=== PATIENT | female | born 1945 | race Caucasian/White ===

== ENCOUNTER 2018-02-21 15:23 | Emergency (ER) | payer MEDICARE ==
[2018-02-21 15:34] VITALS: BP 144/69
--- NOTE | 2018-02-21 15:48 | UC ---
Head Injury HPI - HPI Summary HPI Summary: 72 yo female presents accompanied by her with a head injury. Around 1430 today pt slipped in her yard on something wet and fell backwards. She tells me that the back of her head hit the corner of a brick. She does not remember much after that. Her said that he found her <5minutes later and she was conscious at that time and in pain. He noticed blood and a lac to the back of her head and pt was complaining of a headache and dizziness - he drove her to . Currently pt is complaining of a headache, dizziness, increased anxiety, and tingling in b/l UEs and LEs. She is able to describe falling to me, but says she cannot remember what happened after that. Currently she thinks it is around 1400 (actually 1600) and does not remember "where the last hours have gone". She is very tearful. She takes a daily ASA, but no other blood thinners. Denies vision changes, neck pain, trouble speaking, n/v. - History Of Current Complaint Chief Complaint: UCHeadInjury Stated Complaint: HEAD INJURY Time Seen by Provider: 02/21/18 15:48 Hx Obtained From: Patient, Family/Telephone Answering Service Operator Onset/Duration: Sudden Onset Severity Currently: Severe Severity Initially: Moderate Pain Intensity: 5 Pain Scale Used: 0-10 Numeric - Allergies/Home Medications Allergies/Adverse Reactions: Allergies Allergy/AdvReac Type Severity Reaction Status Date / Time codeine Allergy Nausea Verified 02/21/18 17:10 Home Medications: Home Medications Abaloparatide [Tymlos] 1 dose SUBCUT DAILY 02/21/18 [History] PMH/Surg Hx/FS Hx/Imm Hx - Additional Past Medical History Additional PMH: None - Surgical History Surgical History: Yes Surgery Procedure, Year, and Place: tonsillectomy. L ankle with pins/wire. osteoperosis - Family History Known Family History: Positive: None - Social History Occupation: Retired Lives: With Family Alcohol Use: None Alcohol Amount: 1 GLASS DAILY Substance Use Type: None Smoking Status (MU): Never Smoked Tobacco Review of Systems Constitutional: Negative Skin: Other - Lac occipital scalp Eyes: Negative ENT: Negative Respiratory: Negative Cardiovascular: Negative Gastrointestinal: Negative Neurovascular: Negative Musculoskeletal: Negative Neurological: Headache, Paresthesia - UEs and LEs, Other - Dizziness Psychological: Negative All Other Systems Reviewed And Are Negative: Yes Physical Exam - Summary Physical Exam Summary: GENERAL: Very anxious and tearful. SKIN: 5mm linear laceration to right occipital scalp. HEENT: Head: No garcias's sign or raccoon eyes. Eyes: PERRLA. EOM intact. No nystagmus. Ears: Hearing grossly normal. TMs intact, no bulging, erythema, or edema. No bleeding. NECK: Supple. FROM. Mild TTP C2-C3 CHEST: CTAB. No r/r/w. No accessory muscle use. CV: RRR. Without m/r/g. Pulses intact. Brisk cap refill. MSK: FROM in B/L UEs and LEs with symmetric strength. NEURO: Oriented to person and place, but fails time. Ability to follow 2-step directions and attention intact. CN: II: Peripheral sauceda intact. Vision normal. III, IV, : EOMI. No nystagmus. PERRLA. V: Sensations intact and symmetric. Opens mouth and clenches teeth. VII: No facial asymmetry. Forehead wrinkles. Grins, shuts eyes, frowns, puffs cheeks. VIII: Hearing intact to finger rub. IX, X: Swallows and coughs. Uvula midline. XI: Shrugs shoulders. Turns head against resistance. XII: No tongue deviation [id number]-uw-[id number] are intact. Normal speech. No facial drooping. Sensations intact C4-T1 and L3-S1. PSYCH: Anxious. GCS 15 Triage Information Reviewed: Yes Vital Signs: Initial Vital Signs Temp 98.2 F 02/21/18 15:27 Pulse 89 02/21/18 15:27 Resp 22 02/21/18 15:27 BP 144/69 02/21/18 15:27 Pulse Ox 100 02/21/18 15:27 Vital Signs Reviewed: Yes Head Injury Course/Dx - Course Course Of Treatment: During the PE her asks her about parts of the exam and pt says that she cannot remember me "looking in her eyes" or "testing her arm strength". Given her head trauma location and LOC with difficulty remembering events there is a concern for a basilar skull fracture. She does take a daily ASA increasing her risk of intracranial pathology. For these reasons I have recommended a higher level of care and that the pt be transferred to the ED for further evaluation. Pt and were agreeable to this and agreed to go by ambulance. Pt was placed in a cervical collar and left via EMS in stable condition. - Differential Dx/Diagnosis Provider Diagnoses: Head trauma. LOC Discharge - Sign-Out/Discharge Documenting (check all that apply): Patient Departure All imaging exams completed and their final reports reviewed: No Studies - Discharge Plan Condition: Good Disposition: TRANS HIGHER LVL OF CARE FAC Referrals: Koko Ayers MD [Primary Care Provider] - - Billing Disposition and Condition Condition: GOOD Disposition: Trans Higher Lvl of Care Fac
== END 2018-02-21 16:28 | disposition short-term general hospital (02) ==
LOC: UCEAST 15:23
DX: S06.9X9A Unspecified intracranial injury with loss of consciousness of unspecified duration, initial encounter (principal); S01.01XA Laceration without foreign body of scalp, initial encounter; W01.198A Fall on same level from slipping, tripping and stumbling with subsequent striking against other object, initial encounter; Y92.096 Garden or yard of other non-institutional residence as the place of occurrence of the external cause; Z79.82 Long term (current) use of aspirin; Z88.5 Allergy status to narcotic agent
CPT/HCPCS: 99214; G0463

== ENCOUNTER 2018-02-21 16:49 | Emergency (ER) | payer MEDICARE ==
--- NOTE | 2018-02-21 17:45 | ED ---
Head Injury - HPI Summary HPI Summary: This pt is a 72 y/o female presenting to [facility] via EMS from [facility] for a head injury today s/p mechanical fall. Pt reports she was outside when she stepped on "something wet" and slipped on bricks striking the back of her head on the right side. Pt notes she had LOC but is unsure how long it lasted. She c/o headache, neck pain, and abrasions. Pt went to [facility] and was placed on a C- collar. Denies back pain, abd pain, nausea, vomiting, chest pain, dizziness. - History Of Current Complaint Chief Complaint: EDHeadInjury Stated Complaint: HEAD INJURY Time Seen by Provider: 02/21/18 17:24 Hx Obtained From: Patient Mechanism Of Injury: Direct Blow, Fall From A Standing Position Onset/Duration: Started Hours Ago, Traumatic, Still Present Onset of Pain: Immediate Severity Initially: Moderate Pain Intensity: 6 Pain Scale Used: 0-10 Numeric Location of Head Injury: Occipital - right sided Aggravating Factor(s): Other: - nothing Alleviating Factor(s): Other: - nothing Associated Signs And Symptoms: LOC Duration Unknown, Headache - Allergies/Home Medications Allergies/Adverse Reactions: Allergies Allergy/AdvReac Type Severity Reaction Status Date / Time codeine Allergy Nausea Verified 02/21/18 17:10 PMH/Surg Hx/FS Hx/Imm Hx Endocrine/Hematology History: Denies: Hx Diabetes, Hx Thyroid Disease Cardiovascular History: Denies: Hx Hypercholesterolemia, Hx Hypertension, Hx Peripheral Vascular Disease Respiratory History: Denies: Hx Asthma, Hx Chronic Obstructive Pulmonary Disease (COPD) GI History: Denies: Hx Ulcer Musculoskeletal History: Reports: Hx Osteoporosis Denies: Hx Arthritis, Hx Rheumatoid Arthritis Sensory History: Denies: Hx Cataracts, Hx Contacts or Glasses, Hx Glaucoma, Hx Hearing Aid Opthamlomology History: Denies: Hx Cataracts, Hx Contacts or Glasses, Hx Glaucoma Neurological History: Denies: Hx Headaches, Hx Seizures, Hx Transient Ischemic Attacks (TIA) Psychiatric History: Denies: Hx Anxiety, Hx Depression - Cancer History Hx Chemotherapy: No Hx Radiation Therapy: No - Surgical History Surgery Procedure, Year, and Place: tonsillectomy. L ankle with pins/wire. osteoperosis Hx Anesthesia Reactions: No Infectious Disease History: No Infectious Disease History: Reports: Hx Shingles - 1996, History Other Infectious Disease - Measles Denies: Hx Clostridium Difficile, Hx Hepatitis, Hx Human Immunodeficiency Virus (HIV), Hx of Known/Suspected MRSA, Hx Tuberculosis, Hx Known/Suspected VRE , Hx Known/Suspected VRSA, Traveled Outside the [place] in Last 30 Days - Family History Family History: mother with macular degeneration - Social History Alcohol Use: None Alcohol Amount: 1 GLASS DAILY Substance Use Type: Reports: None Smoking Status (MU): Never Smoked Tobacco Review of Systems Negative: Fever, Chills Negative: Chest Pain Negative: Abdominal Pain, Vomiting, Nausea Musculoskeletal: Other - neck pain Negative: Other - back pain Skin: Other - abrasions Positive: Headache All Other Systems Reviewed And Are Negative: Yes Physical Exam - Summary Physical Exam Summary: VITAL SIGNS: Reviewed. GENERAL: Patient is a well-developed and nourished female who is lying comfortable in the stretcher. Patient is not in any acute respiratory distress. HEAD AND FACE: Superficial abrasion approximately 3 mm, not actively bleeding, on the posterior aspect of head. No sinus tenderness. EYES: PERRLA, EOMI x 2, No injected conjunctiva, no nystagmus. EARS: Hearing grossly intact. Ear canals and tympanic membranes are within normal limits. MOUTH: Oropharynx within normal limits. NECK: Supple, trachea is midline, no adenopathy, no JVD, no carotid bruit. Pt has a C-collar placed. CHEST: Symmetric, no tenderness at palpation LUNGS: Clear to auscultation bilaterally. No wheezing or crackles. CVS: Regular rate and rhythm, S1 and S2 present, no murmurs or gallops appreciated. ABDOMEN: Soft, non-tender. No signs of distention. No rebound, no guarding, and no masses palpated. Bowel sounds are normal. EXTREMITIES: FROM in all major joints, no edema, no cyanosis or clubbing. NEURO: Alert and oriented x 3. No acute neurological deficits. Speech is normal and follows commands. SKIN: Dry and warm GCS: 15 Triage Information Reviewed: Yes Vital Signs On Initial Exam: Initial Vitals Temp Pulse Resp BP Pulse Ox 98.6 F 69 18 159/111 100 02/21/18 16:58 02/21/18 16:58 02/21/18 16:58 02/21/18 16:58 02/21/18 16:58 Vital Signs Reviewed: Yes Diagnostics - Vital Signs Vital Signs Temp Pulse Resp BP Pulse Ox 02/21/18 16:58 98.6 F 69 18 159/111 100 - Laboratory Result Diagrams: 02/21/18 17:20 02/21/18 17:20 Lab Statement: Any lab studies that have been ordered have been reviewed, and results considered in the medical decision making process. - CT Cervical spine CT CT Interpretation: Positive (See Comments) - IMPRESSION: 1. There is soft tissue emphysema in the base of the right occipital scalp and right posterior neck likely related to trauma but no obvious radiopaque foreign body. 2. No acute cervical spine fracture. Dr. Harris has reviewed this report. CT Interpretation Completed By: Radiologist Brain CT CT Interpretation: No Acute Changes - IMPRESSION: 1. There is age-related diffuse cerebral and cerebellar volume loss and chronic microvascular ischemic disease. 2. No acute intracranial patholgy. Dr. Harris has reviewed this report. CT Interpretation Completed By: Radiologist Head Injury Course/Dx Assessment/Plan: This pt is a 72 y/o female presenting to [facility] via EMS from [facility] for a head injury today s/p mechanical fall. Pt reports she was outside when she stepped on "something wet" and slipped on bricks striking the back of her head on the right side. Pt notes she had LOC but is unsure how long it lasted. She c/o headache, neck pain, and abrasions. Pt went to [facility] and was placed on a C-collar. Denies back pain, abd pain, nausea, vomiting, chest pain, dizziness. Patient given Tetanus booster. Blood test results without any significant abnormality. C-spine CT and Head CT impression.: there is a soft tissue emphysema in the base of the right occipital scalp and right posterior neck likely related to the trauma but no obvious radiopaque foreign body. No acute cervical fracture. In the ER course the patient remained hemodynamically stable. The patient is ambulating with a good steady walk. I discussed all the findings and test results with the patient. Patient was instructed to return to the emergency room immediately if any of the symptoms return or worsens. Plan of care was discussed with the patient and she understands and agrees. All questions were answered at patient satisfaction. There were no further complaints or concerns. Lung exam before discharge: CTA B/L. Good air exchange. No wheezing or crackles heard. CVS: S1 and S2 present. No murmurs appreciated. Patient is alert and oriented x 3. Patient is hemodynamically stable. Patient will be discharged home with follow up PCP in the next 2-3 days. - Diagnoses Differential Diagnosis/HQI/PQRI: Cervical Sprain, Concussion With LOC, Contusion , Intracranial Bleed, Skull Fracture Provider Diagnoses: Head contusion, Neck contusion, Abrasion Discharge - Sign-Out/Discharge Documenting (check all that apply): Patient Departure - Discharge home - Discharge Plan Condition: Stable Disposition: HOME Patient Education Materials: Contusion in Adults (ED), Abrasion (ED) Referrals: Koko Ayers MD [Primary Care Provider] - Additional Instructions: FOLLOW UP WITH YOUR PRIMARY CARE PROVIDER WITHIN ONE WEEK FOR HIGH BLOOD PRESSURE NOTED TODAY. RETURN TO THE ED FOR ANY NEW OR WORSENING SYMPTOMS. - Billing Disposition and Condition Condition: STABLE Disposition: Home - Attestation Statements Document Initiated by Jbibe: Yes Documenting Scribe: Suzanna Rodrigues Provider For Whom Scribe is Documenting (Include Credential): Ramses Harris MD Scribe Attestation: Suzanna Boyer scribed for Ramses Harris MD on 02/22/18 at 0747. Scribe Documentation Reviewed: Yes Provider Attestation: The documentation as recorded by the Suzanna hull accurately reflects the service I personally performed and the decisions made by , Ramses Harris MD
[2018-02-21 17:56] LABS: ABS Basophils 0.1 10^3/ul (0-0.2); ABS Eosinophils 0.2 10^3/ul (0-0.6); ABS Lymphocytes 1.5 10^3/ul (1.0-4.8); ABS Monocytes 0.6 10^3/ul (0-0.8); ABS Neutrophils 5.9 10^3/ul (1.5-7.7); ABS Nucleated RBC 0 10^3/ul; Eosinophil % 2.1 % (0-6); Hematocrit 45 % (35-47); Hemoglobin 15.6 g/dl (12.0-16.0); Lymphocyte % 18.6 % (25-47); Mean Corpuscular HGB Conc 35 g/dl (31-36); Mean Corpuscular Hemoglobin 31 pg (27-31); Mean Corpuscular Volume 91 fL (80-97); Mean Platelet Volume 10.2 um3 (7.4-10.4); Nucleated Red Blood Cells % 0; Platelet Count 207 10^3/ul (150-450); Red Blood Count 4.97 10^6/ul (4.00-5.40); Red Cell Distribution Width 14 % (10.5-15); White Blood Count 8.3 10^3/ul (3.5-10.8)
[2018-02-21 18:05] LABS: EGFR Non-African American 82.7 (>60)
--- NOTE | 2018-02-21 18:24 | RAD ---
EXAM: CT Head Without Intravenous Contrast EXAM DATE/TIME: 02/21/2018 5:54 PM CLINICAL HISTORY: 72 years old, female; Pain; Headache; Patient HX: Hit back of head base of skull; Additional info: Head injury TECHNIQUE: Axial computed tomography images of the head/brain without intravenous contrast. All CT scans at this facility use at least one of these dose optimization techniques: automated exposure control; mA and/or kV adjustment per patient size (includes targeted exams where dose is matched to clinical indication); or iterative reconstruction. COMPARISON: No relevant prior studies available. FINDINGS: Brain: There is age-related diffuse cerebral and cerebellar volume loss and chronic microvascular ischemic disease. Ventricles: Normal. No ventriculomegaly. Bones/joints: Normal. No acute fracture. Sinuses: Normal as visualized. No acute sinusitis. Mastoid air cells: Normal as visualized. No mastoid effusion. Soft tissues: There is a sebaceous cyst of the high right frontal scalp. IMPRESSION: 1. There is age-related diffuse cerebral and cerebellar volume loss and chronic microvascular ischemic disease. 2. No acute intracranial pathology. To contact [facility] with a general question: [facility] - [phone] For direct physician to physician contact: Physician Hotline - [phone] [facility] ([facility] Facility ID #[id number])
--- NOTE | 2018-02-21 18:27 | RAD ---
EXAM: CT Cervical Spine Without Intravenous Contrast CLINICAL HISTORY: 72 years old, female; Injury or trauma; Fall; Initial encounter; Concussion /head injury; Additional info: Neck pain TECHNIQUE: Axial computed tomography images of the cervical spine without intravenous contrast. All CT scans at this facility use at least one of these dose optimization techniques: automated exposure control; mA and/or kV adjustment per patient size (includes targeted exams where dose is matched to clinical indication); or iterative reconstruction. Coronal and sagittal reformatted images were created and reviewed. COMPARISON: No relevant prior studies available. FINDINGS: Vertebrae: No acute cervical spine fracture. There is multilevel disc height loss, endplate degenerative spurring and uncinate process and facet hypertrophy. There is diffuse osteopenia. There is grade 1 anterolisthesis at C2-3 and C3-4, likely degenerative. There is multilevel neural foraminal stenosis. Discs/spinal canal/neural foramina: See above. Soft tissues: There is soft tissue emphysema in the base of the right occipital scalp and right posterior neck likely related to trauma but no obvious radiopaque foreign body. Lung apices: Unremarkable as visualized. IMPRESSION: 1. There is soft tissue emphysema in the base of the right occipital scalp and right posterior neck likely related to trauma but no obvious radiopaque foreign body. 2. No acute cervical spine fracture. To contact [facility] with a general question: [facility] - [phone] For direct physician to physician contact: Physician Hotline - [phone] [facility] ([facility] Facility ID #[id number])
[2018-02-21] MEDS ORDERED: Tetan/Diph/Pertus SYR(Tdap)* 0.5 ML SYR(BOOSTRIX) use SYR IM ONE (18:36)
[2018-02-21 19:00] VITALS: BP 129/67
== END 2018-02-21 18:59 | disposition home or self-care (01) ==
LOC: ED 16:49
DX: S00.93XA Contusion of unspecified part of head, initial encounter (principal); S10.93XA Contusion of unspecified part of neck, initial encounter; T14.8XXA Other injury of unspecified body region, initial encounter; M81.0 Age-related osteoporosis without current pathological fracture; W01.0XXA Fall on same level from slipping, tripping and stumbling without subsequent striking against object, initial encounter; Y92.9 Unspecified place or not applicable
CPT/HCPCS: 36415; 70450; 72125; 80053; 85025; 90471; 90715; 99283

== ENCOUNTER 2019-03-13 11:59 | Emergency (ER) | payer MEDICARE ==
[2019-03-13 12:10] VITALS: BP 129/62
--- NOTE | 2019-03-13 13:58 | UC ---
Skin Complaint HPI - HPI Summary HPI Summary: Patient is a 73-year-old female presenting with facial "rug carson"to happen today she was walking her house. She states she got new shoes and she has been tripping over them and this time she actually fell and her face looked across the carpet. Denies bleeding but notes minimal "oozing." Denies neck pain. Patient denies taking blood thinners. Denies loss of consciousness, changes in vision, headache, or any injury to other body parts. Patient states she did not clean the rug carson and would like them cleaned out. - History of Current Complaint Chief Complaint: UCSkin Stated Complaint: FELL FACIAL ABRASION Hx Obtained From: Patient Onset/Duration: Sudden Onset Pain Intensity: 1 - Allergy/Home Medications Allergies/Adverse Reactions: Allergies Allergy/AdvReac Type Severity Reaction Status Date / Time codeine Allergy Nausea Verified 03/13/19 12:10 Home Medications: Home Medications Ibandronate TAB(NF) [Boniva(NF)] 150 mg PO 03/13/19 [History] PMH/Surg Hx/FS Hx/Imm Hx - Surgical History Surgical History: Yes Surgery Procedure, Year, and Place: tonsillectomy. L ankle with pins/wire. osteoperosis - Family History Known Family History: Positive: Unknown, Non-Contributory Family History: mother with macular degeneration - Social History Alcohol Use: Occasionally Alcohol Amount: 1 GLASS DAILY Substance Use Type: None Smoking Status (MU): Never Smoked Tobacco Review of Systems All Other Systems Reviewed And Are Negative: No Constitutional: Positive: Negative Skin: Positive: Other - Facial rug carson Eyes: Positive: Negative Respiratory: Positive: Negative Cardiovascular: Positive: Negative Gastrointestinal: Positive: Negative. Negative: Vomiting, Nausea Musculoskeletal: Positive: Negative Neurological: Negative: Headache Physical Exam Triage Information Reviewed: Yes Appearance: Well-Appearing, No Pain Distress, Well-Nourished Vital Signs: Initial Vital Signs Temp 98.7 F 03/13/19 12:07 Pulse 60 03/13/19 12:07 Resp 18 03/13/19 12:07 BP 129/62 03/13/19 12:07 Pulse Ox 99 03/13/19 12:07 Vital Signs Reviewed: Yes Eyes: Positive: Conjunctiva Clear, Other: - PERRLA. EOM intact ENT: Positive: Hearing grossly normal Neck: Positive: Supple Respiratory Exam: Normal Respiratory: Positive: No respiratory distress Cardiovascular Exam: Normal Cardiovascular: Positive: RRR Neurological: Positive: Alert Psychological: Positive: Age Appropriate Behavior Skin: Positive: Other - 2 cm circular abrasion noted on left cheek bone. 25 cm abrasion noted on left forehead. No active bleeding or drainage Course/Dx - Course Course Of Treatment: The patient's abrasions were cleaned with normal saline and antibiotic ointment applied. Instructed her to the areas clean and dry. She may continue with otc antibiotic ointment. Instructed to return or go to the ED if she experiences any signs of infection. Patient voiced understanding and agreed with the treatment plan. - Diagnoses Provider Diagnosis: Facial abrasion Discharge ED - Sign-Out/Discharge Documenting (check all that apply): Patient Departure All imaging exams completed and their final reports reviewed: No Studies - Discharge Plan Condition: Stable Disposition: HOME Patient Education Materials: Abrasion (ED) Referrals: Koko Ayers MD [Primary Care Provider] - If Needed Additional Instructions: As discussed, your abrasions were cleaned and an antibiotic ointment was applied. The areas should heal nicely on its own. Keep the areas clean and dry. Go to the emergency room if you experience any fever, nausea, vomiting, drainage or increasing redness and warmth from the area. - Billing Disposition and Condition Condition: STABLE Disposition: Home
== END 2019-03-13 14:11 | disposition home or self-care (01) ==
LOC: UCEAST 11:59
DX: S00.81XA Abrasion of other part of head, initial encounter (principal); Z88.5 Allergy status to narcotic agent; W18.09XA Striking against other object with subsequent fall, initial encounter; Y92.9 Unspecified place or not applicable
CPT/HCPCS: 99212; G0463